=== PATIENT | male | born 1965 ===

== ENCOUNTER 2016-11-26 06:00 | Emergency (ER) | payer BC, MEDICAID ==
[2016-11-26 06:05] VITALS: TEMP 99.7
[2016-11-26] MEDS ORDERED: Albuterol 0.083% Inhal Sol (2.5 mg/3 mL) UD IH STA (06:17)
--- NOTE | 2016-11-26 06:21 | C.PDOC ---
History Of Present Illness 51 yo male w/PMHx of asthma, HTN, NIDDM, sleep apnea, obesity come in for evaluation of fever, bodyaches, associated with nasal congestion, dry cough for past 2 days. Pt denies high fever, severe headache, dizziness, vertigo, visual changes, neck pain, drooling, dysphagia, dyspnea, CP, SOB, wheezing, diaphoresis , palpitation, abd. pain, N/V/D, back pain, denies recent travel or known sick contact. Ambulate to ED for evaluation, not in any apparent distress. Time Seen by Provider: 11/26/16 06:05 Chief Complaint (Nursing): Cough, Cold, Congestion History Per: Patient Onset/Duration Of Symptoms: Gradual Current Symptoms Are (Timing): Still Present Past Medical History Reviewed: Historical Data, Nursing Documentation, Vital Signs Vital Signs: Last Vital Signs Temp 99.7 F H 11/26/16 06:03 Pulse 84 11/26/16 06:54 Resp 16 11/26/16 06:54 BP 136/74 11/26/16 06:54 Pulse Ox 97 11/26/16 06:54 - Medical History PMH: Asthma, Diabetes, HTN Other PMH: Sleep apnea, obesity Family History: States: No Known Family Hx - Social History Hx Tobacco Use: No Hx Alcohol Use: No Hx Substance Use: No - Immunization History Hx Tetanus Toxoid Vaccination: Yes Hx Influenza Vaccination: Yes Hx Pneumococcal Vaccination: Yes Review Of Systems Except As Marked, All Systems Reviewed And Found Negative. Constitutional: Positive for: Fever, Malaise Eyes: Negative for: Vision Change ENT: Positive for: Nose Discharge, Nose Congestion. Negative for: Throat Pain, Throat Swelling Cardiovascular: Negative for: Chest Pain, Palpitations, Orthopnea, Edema, Light Headedness Respiratory: Positive for: Cough. Negative for: Shortness of Breath, SOB with Excertion, Pleuritic Pain, Sputum, Wheezing Gastrointestinal: Negative for: Nausea, Vomiting, Abdominal Pain Genitourinary: Negative for: Dysuria, Frequency Musculoskeletal: Negative for: Neck Pain, Back Pain Skin: Negative for: Rash Neurological: Negative for: Weakness, Numbness, Altered Mental Status, Headache , Dizziness Physical Exam - Physical Exam Appears: Well, Non-toxic, No Acute Distress Skin: Normal Color, Warm, Dry, No Rash Eye(s): bilateral: PERRL Ear(s): Bilateral: Normal Nose: Discharge (B/L nasal congestion ) Oral Mucosa: Moist, No Drooling, No Trismus Tongue: Normal Appearing Lips: Normal Appearing Throat: Normal, No Erythema, No Exudate, No Drooling Neck: Supple Cardiovascular: Rhythm Regular, No JVD Respiratory: No Decreased Breath Sounds, No Accessory Muscle Use, No Rales, No Rhonchi, No Stridor, No Wheezing Gastrointestinal/Abdominal: Soft, No Tenderness Back: No CVA Tenderness Extremity: Normal ROM, No Pedal Edema Neurological/Psych: Oriented x3, Normal Speech ED Course And Treatment ECG Rhythm: Sinus Rhythm (@79, LAD, no acute ST-T changes.) ECG Interpretation: No Changes From Prior O2 Sat by Pulse Oximetry: 96 Pulse Ox Interpretation: Normal - Radiology CXR: Interpreted by Me, Viewed By Me CXR Interpretation: Yes: No Acute Disease Progress Note: On re-eavluation, pt is afebrile, hemodynamiclay stable. Non- toxic. Tolerate Po well in ED. PulseOx 96% RA. Neck: (-) meningeal sign. Lungs: CTA B/L, Bs equal B/L. CVS: (+)S1S2, reg. Abd: benign. CXR, EKG review. Pt has clinical findings c/w bronchitis, hx of NIDDM. Pt avdised. ref. to f/u with PMD in 2-3 days for re-eavl. return if any new hcnages. Disposition Counseled Patient/Family Regarding: Studies Performed, Diagnosis, Need For Followup, Rx Given - Disposition Referrals: [facility] [Outside] Disposition: HOME/ ROUTINE Disposition Time: 07:00 Condition: STABLE Additional Instructions: Encourage fluids Take medication as prescribed Follow up with PMD in 1-2 days for re-evaluation. Return to ED if any worsening or new changes. Prescriptions: Albuterol HFA [Ventolin HFA 90 mcg/actuation (8 g)] 1 puff IH Q6 #1 inhaler Benzonatate [Tessalon Perle] 100 mg PO TID #14 capsule Cefdinir [Omnicef] 300 mg PO BID #14 cap Prednisone [Deltasone] 40 mg PO DAILY #6 tablet Instructions: Acute Bronchitis (ED) Print Language: CAMBODIAN - Clinical Impression Clinical Impression: Bronchitis
[2016-11-26] MEDS ORDERED: Albuterol 0.083% Inhal Sol (2.5 mg/3 mL) UD ONE (06:23)
[2016-11-26 06:55] VITALS: BP 136/74; PULSE 84; RESP 16
--- NOTE | 2016-11-26 09:10 | RAD ---
HISTORY: Cough COMPARISON: No prior. TECHNIQUE: Chest PA and lateral FINDINGS: LUNGS: Left basilar infiltrate, likely lower lobe. Followup advised. . PLEURA: No significant pleural effusion identified. No pneumothorax apparent. CARDIOVASCULAR: Normal. OSSEOUS STRUCTURES: No significant abnormalities. VISUALIZED UPPER ABDOMEN: Normal. OTHER FINDINGS: None. IMPRESSION: Probable left lower lobe infiltrate.
--- NOTE | 2016-11-26 10:24 | CARD ---
APPROVED REPORT EKG Measurement Heart [id number] <Conclusion> Normal sinus rhythm Possible Left atrial enlargement Left ventricular hypertrophy with repolarization abnormality Abnormal ECG
[2016-11-27 22:53] VITALS: O2SAT 96
== END 2016-11-26 06:54 | disposition home or self-care (01) ==
LOC: C.ER 06:00
DX: J40 Bronchitis, not specified as acute or chronic (principal)

== ENCOUNTER 2017-10-16 11:02 | Emergency (ER) | payer MEDICAID ==
[2017-10-16 12:06] LABS: HEMOGLOBIN 14.5 g/dL (12.0-18.0); MEAN CELL VOLUME 84.1 fL (80.0-94.0); MEAN CORPUSCULAR HEMOGLOBIN 28.4 pg (27.0-31.0); MEAN CORPUSCULAR HGB CONC 33.8 g/dL (33.0-37.0); RBC 5.08 Mil/uL (4.40-5.90); RED CELL DISTRIBUTION WIDTH 14.2 % (11.5-14.5)
[2017-10-16 12:10] LABS: WHITE BLOOD COUNT 2.5 K/uL (4.8-10.8)
[2017-10-16] MEDS ORDERED: Sodium Chloride 0.9% 1,000 ML IV ONE (12:19)
[2017-10-16 12:21] LABS: ALB/GLOB RATIO 1.2 (1.0-2.1); ALBUMIN 4.1 g/dL (3.5-5.0); ALT/SGPT 72 U/L (21-72); AST/SGOT 61 U/L (17-59); BLOOD UREA NITROGEN 14 mg/dL (9-20); CALCIUM 9.3 mg/dl (8.6-10.4); GFR AFRICAN-AMERICAN > 60; GFR NON-AFRICAN AMERICAN > 60
--- NOTE | 2017-10-16 12:26 | C.PDOC ---
History Of Present Illness 52 y/o male presents to the emergency room with complaints of feeling dizzy and lightheaded today. Reports his blood sugar was elevated, 400 at home. Otherwise patient denies any fever, chills, nausea, or vomiting. Time Seen by Provider: 10/16/17 11:56 Chief Complaint (Nursing): Dizziness/Lightheaded History Per: Patient History/Exam Limitations: no limitations Onset/Duration Of Symptoms: Hrs Current Symptoms Are (Timing): Still Present Activity At Onset Of Symptoms: Change In Head Position Associated Symptoms Preceding Syncopal Episode: Lightheadedness Seizure Or Post-ictal Symptoms: None Fall Associated With With Symptoms: No Severity: Mild Past Medical History Reviewed: Historical Data, Nursing Documentation, Vital Signs Vital Signs: Last Vital Signs Temp 98.1 F 10/16/17 11:45 Pulse 78 10/16/17 11:45 Resp 16 10/16/17 11:55 BP 138/70 10/16/17 11:45 Pulse Ox 99 10/16/17 12:27 - Medical History PMH: Asthma, Diabetes, HTN, Sleep Apnea Denies: Chronic Kidney Disease Surgical History: No Surg Hx Other Surgeries: Right ankle surgery - [facility] Procedures INTRODUCTION OF ANTI-INFLAM INTO RESP TRACT, VIA OPENING (11/27/16) Family History: States: Unknown Family Hx - Social History Hx Tobacco Use: No Hx Alcohol Use: No Hx Substance Use: No - Immunization History Hx Tetanus Toxoid Vaccination: Yes Hx Influenza Vaccination: Yes Hx Pneumococcal Vaccination: Yes Review Of Systems Constitutional: Negative for: Fever, Chills Cardiovascular: Positive for: Light Headedness Gastrointestinal: Negative for: Nausea, Vomiting Neurological: Positive for: Dizziness Physical Exam - Physical Exam Appears: Non-toxic, No Acute Distress, Other (Obese male) Skin: Normal Color, Warm, Dry Head: Atraumatic, Normacephalic Eye(s): bilateral: Normal Inspection, PERRL, EOMI Nose: Normal Oral Mucosa: Moist Neck: Normal ROM Chest: Symmetrical Cardiovascular: Rhythm Regular, No Murmur Respiratory: Normal Breath Sounds, No Rales, No Rhonchi, No Wheezing Gastrointestinal/Abdominal: Soft, No Tenderness, No Distention Extremity: Normal ROM Extremity: Bilateral: Atraumatic, Normal Color And Temperature, Normal ROM Neurological/Psych: Oriented x3, Normal Speech Gait: Steady ED Course And Treatment - Laboratory Results Result Diagrams: 10/16/17 11:59 10/16/17 11:59 Lab Interpretation: Abnormal O2 Sat by Pulse Oximetry: 99 (RA) Pulse Ox Interpretation: Normal Progress Note: Treated with IVF NSS, meclizine and reglan. On re-evaluation feeling better, neuro intact, ambulating with steady gait Reassessment Condition: Improved Medical Decision Making Medical Decision Making: Finger stick on arrival is 131. Initial Plan: * Labs * EKG * IV fluids * Meclizine 25 mg PO * Reglan 10 mg IV Disposition Counseled Patient/Family Regarding: Studies Performed, Diagnosis, Need For Followup, Rx Given - Disposition Referrals: [facility] [Outside] [facility] [Outside] Disposition Time: 14:30 Condition: STABLE Prescriptions: Meclizine [Meclizine*] 25 mg PO Q6 #30 tab Instructions: Vertigo (a Type of Dizziness) Forms: [employer] (Citizen Of [place]) - POA Present On Arrival: None - Clinical Impression Clinical Impression: Dizziness - PA / GORING CUTTER / Resident Statement MD/DO has reviewed & agrees with the documentation as recorded. - Scribe Statement The provider has reviewed the documentation as recorded by the Scribe (Geeta Aragon) All medical record entries made by the Scribe were at my direction and personally dictated by me. I have reviewed the chart and agree that the record accurately reflects my personal performance of the history, physical exam, medical decision making, and the department course for this patient. I have also personally directed, reviewed, and agree with the discharge instructions and disposition.
[2017-10-16] MEDS ORDERED: Sodium Chloride 0.9% 1,000 ML ONE (12:46)
[2017-10-16 13:06] LABS: SQUAMOUS EPITHIAL 3 /hpf (0-5); URINE BILIRUBIN NEGATIVE (NEGATIVE); URINE BLOOD NEGATIVE (NEGATIVE); URINE CLARITY Clear (Clear); URINE COLOR Yellow (YELLOW); URINE GLUCOSE (UA) NORMAL (Normal); URINE LEUKOCYTE ESTERASE NEG Leu/uL (Negative); URINE PROTEIN NEGATIVE (NEGATIVE); URINE UROBILINOGEN NORMAL mg/dL (0.2-1.0)
[2017-10-16 14:52] VITALS: BP 117/68; PULSE 71; RESP 20; TEMP 98.6; O2SAT 97
== END 2017-10-16 14:49 | disposition home or self-care (01) ==
LOC: C.ER 11:02
DX: R42 Dizziness and giddiness (principal); I10 Essential (primary) hypertension; E11.9 Type 2 diabetes mellitus without complications
CPT/HCPCS: 80053; 81001; 82948; 84484; 85027; 96360; 99285; J2765; J7040

== ENCOUNTER 2018-08-27 20:38 | Emergency (ER) | payer MEDICAID ==
[2018-08-27 20:38] VITALS: BMI 33.9
[2018-08-27 20:53] VITALS: PULSE 60; TEMP 97.7; O2SAT 98
[2018-08-27] MEDS ORDERED: Sodium Chloride 0.9% 1,000 ML IV ONE (20:55)
--- NOTE | 2018-08-27 20:55 | C.PDOC ---
History Of Present Illness Patient presents with sudden onset sharp stabbing left flank pain radiating to the groin since 6:00PM with some nausea. Patient had recent colostomy done due to diverticulitis. Denies fever, chills, or vomiting. Time Seen by Provider: 08/27/18 20:54 Chief Complaint (Nursing): Male Genitourinary History Per: Patient History/Exam Limitations: no limitations Onset/Duration Of Symptoms: Hrs Current Symptoms Are (Timing): Still Present Severity: Severe Pain Scale Rating Of: 7 Quality Of Discomfort: Sharp, Stabbing Associated Symptoms: Nausea. denies: Fever, Chills, Vomiting Alleviating Factors: None Recent travel outside of the [place]: No Additional History Per: Patient Past Medical History Reviewed: Historical Data, Nursing Documentation, Vital Signs Vital Signs: Last Vital Signs Temp 97.7 F 08/27/18 20:49 Pulse 60 08/27/18 20:49 Resp 14 08/27/18 20:49 BP 148/95 H 08/27/18 20:49 Pulse Ox 98 08/27/18 20:49 - Medical History PMH: Asthma, Diabetes, HTN, Sleep Apnea Denies: Chronic Kidney Disease - [facility] Procedures (05/15/18) BYPASS DESCENDING COLON TO CUTANEOUS, OPEN APPROACH (05/15/18) EXCISION OF DESCENDING COLON, ENDO, DIAGN (05/15/18) EXCISION OF TRANSVERSE COLON, ENDO, DIAGN (05/15/18) EXERCISE TREATMENT OF MUSCULOSK WHOLE USING ASSIST EQUIPMENT (06/11/18) GAIT TRAINING/AMBULAT TREATMENT USING ASSIST EQUIPMENT (06/11/18) HOME MANAGEMENT TREATMENT USING ASSIST EQUIPMENT (06/11/18) INSERTION OF INFUSION DEV INTO SUP VENA CAVA, PERC APPROACH (06/06/18) INTRODUCE OF OTH ANTI-INFECT INTO PERIPH VEIN, PERC APPROACH (06/11/18) INTRODUCTION OF ANTI-INFLAM INTO RESP TRACT, VIA OPENING (11/27/16) INTRODUCTION OF SERUM/TOX/VACCINE INTO MUSCLE, PERC APPROACH (05/15/18) RELEASE LARGE INTESTINE, OPEN APPROACH (05/15/18) RESECTION OF SIGMOID COLON, OPEN APPROACH (05/15/18) Family History: States: No Known Family Hx - Social History Hx Tobacco Use: No Hx Alcohol Use: No Hx Substance Use: No - Immunization History Hx Tetanus Toxoid Vaccination: Yes Hx Influenza Vaccination: Yes Hx Pneumococcal Vaccination: Yes Review Of Systems Constitutional: Negative for: Fever, Chills Cardiovascular: Negative for: Chest Pain, Palpitations Respiratory: Negative for: Cough, Shortness of Breath Gastrointestinal: Positive for: Nausea. Negative for: Vomiting Neurological: Negative for: Weakness, Numbness Physical Exam - Physical Exam Appears: Non-toxic, In Acute Distress Skin: Warm, Dry Head: Normacephalic Oral Mucosa: Moist Neck: Trachea Midline, Supple Chest: Symmetrical, No Tenderness Cardiovascular: Rhythm Regular Respiratory: No Rales, No Rhonchi, No Wheezing Gastrointestinal/Abdominal: Soft, No Tenderness, Distention, Other (Left colostomy, midline surgical scar healing clean and dry.) Back: CVA Tenderness (left) Extremity: Normal ROM Extremity: Bilateral: Atraumatic Neurological/Psych: Oriented x3 Gait: Steady ED Course And Treatment - Laboratory Results Result Diagrams: 08/27/18 21:22 08/27/18 21:22 O2 Sat by Pulse Oximetry: 98 (Room air) Pulse Ox Interpretation: Normal Progress Note: Blood work and urinalysis ordered. IV fluids, pepcid, toradol, and zofran administered. Patient passed a kidney stone in the ed./Pt is pain free Reevaluation Time: 23:59 Reassessment Condition: Improved Disposition Counseled Patient/Family Regarding: Studies Performed, Diagnosis, Need For Followup, Rx Given - Disposition Referrals: Per Paiz MD [Medical Doctor] - Disposition: HOME/ ROUTINE Disposition Time: 20:54 Condition: FAIR Additional Instructions: Please return if symptoms recur Prescriptions: Ibuprofen [Motrin Tab] 800 mg PO TID PRN #12 tab PRN Reason: Pain, Moderate (4-7) Tamsulosin [Flomax] 0.4 mg PO DAILY #14 cap Instructions: Kidney Stones (DC), Renal Colic (DC), Kidney Stone Diet Forms: [email or web address] (Faroese) - Clinical Impression Clinical Impression: Kidney stone on left side, Renal colic on left side - Scribe Statement The provider has reviewed the documentation as recorded by the Scribdulce maria Kaplan All medical record entries made by the Scribe were at my direction and personal ly dictated by me. I have reviewed the chart and agree that the record accurately reflects my personal performance of the history, physical exam, medical decision making, and the department course for this patient. I have also personally directed, reviewed, and agree with the discharge instructions and disposition.
[2018-08-27 21:26] LABS: BASO % 0.8 % (0.0-2.0); EOS # 0.1 K/uL (0.0-0.7); EOS % 2.5 % (0.0-4.0); HEMOGLOBIN 13.8 g/dL (12.0-18.0); LYMPH # 1.7 K/uL (1.0-4.3); LYMPH % 41.4 % (20.0-40.0); MEAN CELL VOLUME 84.3 fL (80.0-94.0); MEAN CORPUSCULAR HEMOGLOBIN 27.3 pg (27.0-31.0); MEAN CORPUSCULAR HGB CONC 32.3 g/dL (33.0-37.0); MEAN PLATELET VOLUME 8.1 fL (7.2-11.7); MONO # 0.4 K/uL (0.0-0.8); MONO % 9.6 % (0.0-10.0); NEUT # 1.9 K/uL (1.8-7.0); NEUT % 45.7 % (50.0-75.0); NRBC % 0.1 % (0.0-2.0); RBC 5.05 Mil/uL (4.40-5.90); RED CELL DISTRIBUTION WIDTH 15.1 % (11.5-14.5)
[2018-08-27 21:32] LABS: WHITE BLOOD COUNT 4.1 K/uL (4.8-10.8)
[2018-08-27 21:37] LABS: INR 0.9; PROTHROMBIN TIME 10.2 SECONDS (9.7-12.2)
[2018-08-27 21:38] LABS: BLOOD UREA NITROGEN 16 mg/dL (9-20); CALCIUM 9.5 mg/dl (8.6-10.4); GFR NON-AFRICAN AMERICAN > 60; LIPASE 235 U/L (23-300)
[2018-08-27 21:39] LABS: ALB/GLOB RATIO 1.3 (1.0-2.1); ALBUMIN 4.2 g/dL (3.5-5.0); ALT/SGPT 21 U/L (21-72); AST/SGOT 37 U/L (17-59)
[2018-08-27 22:13] LABS: SQUAMOUS EPITHIAL < 1 /hpf (0-5); URINE BACTERIA RARE (<OCC); URINE BILIRUBIN NEGATIVE (NEGATIVE); URINE BLOOD 3+ (NEGATIVE); URINE CLARITY Clear (Clear); URINE COLOR Yellow (YELLOW); URINE GLUCOSE (UA) NORMAL (Normal); URINE LEUKOCYTE ESTERASE NEG Leu/uL (Negative); URINE PROTEIN NEGATIVE (NEGATIVE); URINE UROBILINOGEN NORMAL mg/dL (0.2-1.0)
[2018-08-28 00:22] VITALS: BP 119/74; RESP 16
--- NOTE | 2018-08-28 08:39 | CT ---
CT abdomen and pelvis HISTORY: Left flank pain. Left renal calculus. COMPARISON: None available. TECHNIQUE: Multiple contiguous axial images were performed through the abdomen and pelvis without the use of intravenous contrast. Subsequently, sagittal and coronal reformatted images were obtained. This CT exam was performed using one or more of the following dose reduction techniques: Automated exposure control, adjustment of the mA and/or kV according to patient size, and/or use of iterative reconstruction technique. Findings: MILD ATELECTASIS AT THE LUNG BASES. SUGGESTION OF CARDIOMEGALY. CLINICAL CORRELATION. NO PLEURAL OR PERICARDIAL EFFUSION. MILD FATTY INFILTRATION OF THE LIVER. GALLBLADDER IS PRESERVED. SPLEEN IS PRESERVED. ADRENALS ARE PRESERVED. PANCREAS IS PRESERVED. SMALL HIATAL HERNIA. RIGHT KIDNEY: SEVERAL NONOBSTRUCTIVE CALCULUS; FOR EXAMPLE, IN THE UPPER POLE MEASURING 6 MILLIMETERS WITH SEVERAL ADDITIONAL CALCULI SEEN THROUGHOUT THE KIDNEY; FOR EXAMPLE, IN THE LOWER POLE MEASURING UP TO 4 MILLIMETERS AND 5 MILLIMETERS. NO GROSS HYDRONEPHROSIS. LEFT KIDNEY: MILD LEFT RENAL HYDRONEPHROSIS WITH MILD DILATATION OF THE PROXIMAL LEFT URETER WELL MILD LEFT PERINEPHRIC FAT STRANDING. NO GROSS CALCULUS IS IDENTIFIED WITHIN THE LEFT URETER OR URINARY BLADDER. THESE FINDINGS MAY BE THE SEQUELAE OF A PASSED CALCULUS. IN ADDITION, THERE ARE SEVERAL CALCULI NOTED SCATTERED THROUGHOUT THE LEFT KIDNEY; FOR EXAMPLE, IN THE UPPER POLE MEASURING UP TO 6 MILLIMETERS, IN THE MIDPOLE MEASURING UP TO 5 MILLIMETERS, AND IN THE LOWER POLE MEASURING UP TO 6 MILLIMETERS. URINARY BLADDER IS GROSSLY PRESERVED. HETEROGENEOUS PROSTATE. POSTSURGICAL CHANGES IN THE BOWEL WITH A LEFT LOWER QUADRANT OSTOMY IN PLACE. SURGICAL SUTURES NOTED AT THE LEVEL OF THE SIGMOID COLON. SUGGESTION OF A PARASTOMAL HERNIA INVOLVING A NONOBSTRUCTED SMALL BOWEL. FECAL RETENTION IN THE RIGHT HEMICOLON. APPENDIX IS VISUALIZED AND IS WITHIN NORMAL LIMITS. SMALL FAT CONTAINING RIGHT INGUINAL HERNIA. FEW SHOTTY PARA-AORTIC AND INGUINAL LYMPH NODES. MILD ATHEROSCLEROTIC CALCIFICATION AND PLAQUE IN THE AORTA. POSTSURGICAL STRANDING AND/OR SCARRING IN THE MIDLINE ABDOMEN. DEGENERATIVE CHANGES IN THE SPINE. IMPRESSION: 1. MILD LEFT RENAL HYDRONEPHROSIS WITH MILD DILATATION OF THE PROXIMAL LEFT URETER WELL MILD LEFT PERINEPHRIC FAT STRANDING. NO GROSS CALCULUS IS IDENTIFIED WITHIN THE LEFT URETER OR URINARY BLADDER. THESE FINDINGS MAY BE THE SEQUELAE OF A PASSED CALCULUS. IN ADDITION, THERE ARE SEVERAL CALCULI NOTED SCATTERED THROUGHOUT THE LEFT KIDNEY; FOR EXAMPLE, IN THE UPPER POLE MEASURING UP TO 6 MILLIMETERS, IN THE MIDPOLE MEASURING UP TO 5 MILLIMETERS, AND IN THE LOWER POLE MEASURING UP TO 6 MILLIMETERS. 2. MULTIPLE NONOBSTRUCTING RIGHT RENAL CALCULI. 3. POSTSURGICAL CHANGES IN THE BOWEL WITH A LEFT LOWER QUADRANT OSTOMY IN PLACE. SURGICAL SUTURES NOTED AT THE LEVEL OF THE SIGMOID COLON. SUGGESTION OF A PARASTOMAL HERNIA INVOLVING A NONOBSTRUCTED SMALL BOWEL. 4. POSTSURGICAL STRANDING AND/OR SCARRING IN THE MIDLINE ABDOMEN. ADDITIONAL findings as above. A PRELIMINARY REPORT WAS GENERATED AT 11:55 P.M. ON 08/27/[address] SISI HERNDON FROM [employer].
== END 2018-08-28 00:22 | disposition home or self-care (01) ==
LOC: C.ER 20:38
DX: N13.2 Hydronephrosis with renal and ureteral calculous obstruction (principal)
CPT/HCPCS: 74176; 80053; 81001; 82365; 83690; 85025; 85610; 85730; 88300; 96361; 96374; 96375; 99284; J1885; J2405; J7030